=== PATIENT | male | born 1975 ===

== ENCOUNTER 2017-02-12 11:11 | Emergency (ER) | payer MEDICARE ==
[2017-02-12 11:12] VITALS: BMI 28.0
[2017-02-12 11:23] VITALS: TEMP 98.9
[2017-02-12] MEDS ORDERED: Sodium Chloride 0.9% 1,000 ML IV SCH (11:45)
--- NOTE | 2017-02-12 11:47 | ED PDOC ---
HPI: Chest Pain Time Seen by Provider: 02/12/17 11:26 Chief Complaint (Nursing): Chest Pain Chief Complaint (Provider): Chest Pain History Per: Patient History/Exam Limitations: no limitations Onset/Duration Of Symptoms: Days Current Symptoms Are (Timing): Still Present Severity: Moderate Quality: "Pain" Associated Symptoms: Dyspnea Modifying Factors: None Exacerbating Factors: None Alleviating Factors: None Additional Complaint(s): Patient is a 41 year old male with a history of lupus and fibromyalgia, presents to ED for chest pain secondary to worsening body pain for 2 days. Patient states he has been taking his prescribed Roxycet without any relief. Notes similar pain in the past, relieved with Morphine and Toradol . Patient denies nausea, vomiting or diarrhea. Patient also notes that he has decreased vision in his left eye and decreased hearing in his left ear which is normal for his " pain flare ups." Past Medical History Reviewed: Historical Data, Nursing Documentation, Vital Signs Vital Signs: Last Vital Signs Temp 98.9 F 02/12/17 11:22 Pulse 87 02/12/17 11:40 Resp 19 02/12/17 11:40 BP 142/96 H 02/12/17 11:40 Pulse Ox 97 02/12/17 11:51 - Medical History PMH: Asthma, CAD, CHF, Fibromyalgia, HTN, Kidney Stones, Chronic Kidney Disease , TIA - Surgical History Surgical History: Hernia Repair (hiatal hernia) - Family History Family History: States: CAD, Hypertension - Living Arrangements Living Arrangements: With Family - Home Medications Home Medications: Ambulatory Orders Medication Instructions Recorded Zolpidem [Ambien] 10 mg PO HS PRN 02/19/16 Allopurinol [Zyloprim] 1 tab PO DAILY 02/12/17 Dexamethasone [Decadron] 4 mg PO QOTHERDAY 02/12/17 Hydroxychloroquine Sulfate 200 mg PO BID 02/12/17 [Plaquenil] Oxycodone HCl [Roxicodone] 20 mg PO TID PRN 02/12/17 amLODIPine [Norvasc] 2 mg PO DAILY 02/12/17 - Allergies Allergies/Adverse Reactions: Allergies Allergy/AdvReac Type Severity Reaction Status Date / Time Penicillins Allergy RASH Verified 02/12/17 11:44 shellfish derived Allergy RASH Verified 02/12/17 11:44 Sulfa (Sulfonamide Allergy RASH Verified 02/12/17 11:44 Antibiotics) azithromycin [From Zithromax] AdvReac NAUSEA Verified 02/12/17 11:44 COLT Risk Score for UA/NSTEMI - COLT Risk Score Age > 64: NO 3 or more CAD Risk Factors: NO Known CAD (Stenosis greater than 50%): NO Aspirin use in past 7 days: NO Severe Angina: NO EKG ST changes greater than 0.5mm: NO Positive Cardiac Marker: NO COLT Score: 0 Risk %: 5% Review of Systems ROS Statement: Except As Marked, All Systems Reviewed And Found Negative Constitutional: Negative for: Fever, Chills Cardiovascular: Positive for: Chest Pain. Negative for: Palpitations Respiratory: Negative for: Shortness of Breath Gastrointestinal: Negative for: Nausea, Vomiting, Abdominal Pain, Diarrhea Musculoskeletal: Positive for: Other (diffuse body pain ) Neurological: Negative for: Weakness, Numbness, Headache Physical Exam - Reviewed Nursing Documentation Reviewed: Yes Vital Signs Reviewed: Yes - Physical Exam Appears: Positive for: Non-toxic, No Acute Distress Skin: Positive for: Normal Color, Warm Eye Exam: Positive for: Normal appearance, EOMI, PERRL Neck: Positive for: Normal, Painless ROM Cardiovascular/Chest: Positive for: Regular Rate, Rhythm, Chest Non Tender. Negative for: Murmur Respiratory: Positive for: Normal Breath Sounds. Negative for: Respiratory Distress Gastrointestinal/Abdominal: Positive for: Normal Exam. Negative for: Tenderness Back: Positive for: Normal Inspection Extremity: Positive for: Normal ROM. Negative for: Pedal Edema, Calf Tenderness Neurologic/Psych: Positive for: Alert, Oriented. Negative for: Motor/Sensory Deficits - Laboratory Results Result Diagrams: 02/12/17 11:40 02/12/17 11:40 - ECG O2 Sat by Pulse Oximetry: 97 (RA) Pulse Ox Interpretation: Normal - Radiology X-Ray: Viewed By [place] X-Ray Interpretation: No Acute Disease - Progress Re-evaluation Time: 14:05 Condition: Re-examined, Improved Medical Decision Making Medical Decision Making: Time: 1140 Initial impression: Exacerbation of pain Initial plan: -- EKG -- UDS -- Troponin -- CBC -- SED rate -- PT/PTT -- NSF and Toradol -- Cardiac monitoring -- U/A Scribe Attestation: Documented by Venice Boggs acting as a scribe for MD MD Constantin Khanibe Attestation: All medical record entries made by the Constantinibjoey were at my direction and personally dictated by me. I have reviewed the chart and agree that the record accurately reflects my personal performance of the history, physical exam, medical decision making, and the department course for this patient. I have also personally directed, reviewed, and agree with the discharge instructions and disposition. Disposition - Clinical Impression Clinical Impression: Chest wall pain - Patient ED Disposition Is Patient to be Admitted: No Doctor Will See Patient In The: Office Counseled Patient/Family Regarding: Diagnosis, Need For Followup - Disposition Disposition: Routine/Home Disposition Time: 14:05 Condition: IMPROVED Instructions: Noncardiac Chest Pain (ED) - POA Present On Arrival: None
[2017-02-12 11:58] LABS: BASO # 0.1 K/uL (0.0-0.2); BASO % 0.7 % (0.0-2.0); EOS # 0.1 K/uL (0.0-0.7); EOS % 1.4 % (0.0-4.0); HEMATOCRIT 44.3 % (35.0-51.0); LYMPH # 2.9 K/uL (1.0-4.3); LYMPH % 32.6 % (20.0-40.0); MEAN CELL VOLUME 84.9 fl (80.0-94.0); MEAN CORPUSCULAR HEMOGLOBIN 28.1 pg (27.0-31.0); MEAN PLATELET VOLUME 10.7 fl (7.2-11.7); MONO % 11.5 % (0.0-10.0); NEUT # 4.7 K/uL (1.8-7.0); NEUT % 53.8 % (50.0-75.0); NRBC % 0.1 % (0.0-0.0); WHITE BLOOD COUNT 8.8 K/uL (4.8-10.8)
[2017-02-12 12:08] LABS: BLOOD UREA NITROGEN 18 mg/dl (9-20); CALCIUM 9.4 mg/dL (8.4-10.2); CARBON DIOXIDE 25 mmol/L (22-30); CHLORIDE 106 mmol/L (98-107); GFR AFRICAN-AMERICAN > 60; GLUCOSE,RANDOM 83 mg/dL (75-110); POTASSIUM 3.8 MMOL/L (3.6-5.0); SODIUM 146 mmol/l (132-148)
[2017-02-12 12:24] LABS: PARTIAL THROMBOPLASTIN TIME 28.7 SECONDS (23.3-32.5)
[2017-02-12 12:49] LABS: RBC URINE 1 /hpf (0-3); URINE BILIRUBIN NEGATIVE (NEGATIVE); URINE BLOOD NEGATIVE (NEGATIVE); URINE COLOR YELLOW (YELLOW); URINE GLUCOSE (UA) NEG (Normal); URINE KETONE NEGATIVE (NEGATIVE); URINE LEUKOCYTE ESTERASE NEG Leu/uL (Negative); URINE PROTEIN NEGATIVE (NEGATIVE); URINE UROBILINOGEN 0.2-1.0 mg/dL (0.2-1.0); WBC URINE 1 /hpf (0-5)
[2017-02-12 14:21] VITALS: BP 128/58; PULSE 90; RESP 16; O2SAT 96
--- NOTE | 2017-02-13 19:00 | CARD ---
APPROVED REPORT EKG Measurement Heart [id number] <Conclusion> Normal sinus rhythm Possible Left atrial enlargement Borderline ECG
== END 2017-02-12 14:34 | disposition home or self-care (01) ==
LOC: H.ER 11:11
DX: R07.89 Other chest pain (principal); I12.9 Hypertensive chronic kidney disease with stage 1 through stage 4 chronic kidney disease, or unspecified chronic kidney disease
CPT/HCPCS: 80048; 81003; 84484; 85025; 85610; 85651; 85730; 93005; 96360; 96361; 96374; 96375; 99284; G0480; J1885; J2270; J7040

== ENCOUNTER 2017-03-22 22:14 | Emergency (ER) | payer MEDICARE ==
[2017-03-22 22:15] VITALS: BMI 28.0
[2017-03-22 22:28] VITALS: BP 170/103; PULSE 69; RESP 20; O2SAT 98
--- NOTE | 2017-03-22 23:47 | ED PDOC ---
HPI: General Adult Time Seen by Provider: 03/22/17 22:22 Chief Complaint (Nursing): Lower Extremity Problem/Injury Chief Complaint (Provider): R lower leg swelling History Per: Patient Additional Complaint(s): Pt. states yesterday he developed atraumatic swelling to the R knee. Reports he was seen by his PMD, Dr. Cano today and had the knee drained. He was told that only blood was aspirated from the knee. Swelling to the knee decreased but he did start to develop R lower leg swelling prompting ED visit and at the direction of Dr. Cano. Denies fever, SOB, chest pain, palpitations, hx of DVT/PE , recent surgery. Past Medical History Reviewed: Historical Data, Nursing Documentation, Vital Signs Vital Signs: Last Vital Signs Temp 98.1 F 03/22/17 23:49 Pulse 69 03/22/17 22:23 Resp 20 03/22/17 22:23 BP 170/103 H 03/22/17 22:23 Pulse Ox 98 03/22/17 23:53 - Medical History PMH: Asthma, CAD, CHF, Fibromyalgia, HTN, Kidney Stones, Chronic Kidney Disease , TIA Other PMH: blind in L eye - Surgical History Surgical History: Hernia Repair (hiatal hernia) - Family History Family History: States: CAD, Hypertension - Home Medications Home Medications: Ambulatory Orders Medication Instructions Recorded Zolpidem [Ambien] 10 mg PO HS PRN 02/19/16 Allopurinol [Zyloprim] 1 tab PO DAILY 02/12/17 Dexamethasone [Decadron] 4 mg PO QOTHERDAY 02/12/17 Hydroxychloroquine Sulfate 200 mg PO BID 02/12/17 [Plaquenil] Oxycodone HCl [Roxicodone] 20 mg PO TID PRN 02/12/17 amLODIPine [Norvasc] 2 mg PO DAILY 02/12/17 - Allergies Allergies/Adverse Reactions: Allergies Allergy/AdvReac Type Severity Reaction Status Date / Time Penicillins Allergy RASH Verified 02/12/17 11:44 shellfish derived Allergy RASH Verified 02/12/17 11:44 Sulfa (Sulfonamide Allergy RASH Verified 02/12/17 11:44 Antibiotics) azithromycin [From Zithromax] AdvReac NAUSEA Verified 02/12/17 11:44 Review of Systems ROS Statement: Except As Marked, All Systems Reviewed And Found Negative Physical Exam - Physical Exam Appears: Positive for: Well, Non-toxic, No Acute Distress Skin: Positive for: Normal Color, Warm. Negative for: Rash Eye Exam: Positive for: Normal appearance Cardiovascular/Chest: Positive for: Regular Rate, Rhythm Respiratory: Positive for: Normal Breath Sounds. Negative for: Crackles, Rales , Wheezing Pulses-Dorsalis Pedis (L): 2+ Pulses-Dorsalis Pedis (R): 2+ Extremity: Positive for: Normal ROM, Calf Tenderness (R calf; negative Eunice's sign), Other (R knee with old healed surgical scar and prepatellar bursa swelling without erythema, warmth, or break in skin integrity; FROM actively of R knee) - Laboratory Results Result Diagrams: 03/22/17 23:30 03/22/17 23:30 - ECG O2 Sat by Pulse Oximetry: 98 - Progress ED Course And Treament: Labs ordered. Morphine 6mg IV, zofran 4mg IV. Duplex RLE vein, knee x-ray ordered. Duplex RLE: negative. Knee x-ray: hardware in place; no fx. Pt. states his ESR was 19 on . Disposition - Clinical Impression Clinical Impression: Knee pain - Patient ED Disposition Is Patient to be Admitted: No - Disposition Disposition: Routine/Home Disposition Time: 01:53 Condition: STABLE Instructions: Knee Pain (ED)
[2017-03-22 23:48] LABS: BASO % 0.3 % (0.0-2.0); EOS % 0.2 % (0.0-4.0); HEMATOCRIT 43.8 % (35.0-51.0); LYMPH # 1.3 K/uL (1.0-4.3); LYMPH % 12.3 % (20.0-40.0); MEAN CELL VOLUME 86.1 fl (80.0-94.0); MEAN CORPUSCULAR HEMOGLOBIN 28.4 pg (27.0-31.0); MEAN PLATELET VOLUME 10.4 fl (7.2-11.7); MONO # 0.7 K/uL (0.0-0.8); MONO % 6.1 % (0.0-10.0); NEUT # 8.9 K/uL (1.8-7.0); NEUT % 81.1 % (50.0-75.0)
[2017-03-22 23:49] VITALS: TEMP 98.1
[2017-03-23 00:01] LABS: ALB/GLOB RATIO 1.2 (1.0-2.1); ALKALINE PHOSPHATASE 82 U/L (38-126); ALT/SGPT 38 U/L (21-72); AST/SGOT 21 U/L (17-59); BILIRUBIN,TOTAL 0.4 mg/dl (0.2-1.3); BLOOD UREA NITROGEN 17 mg/dl (9-20); CALCIUM 9.5 mg/dL (8.4-10.2); CARBON DIOXIDE 28 mmol/L (22-30); CHLORIDE 102 mmol/L (98-107); GFR AFRICAN-AMERICAN > 60; GLUCOSE,RANDOM 169 mg/dL (75-110); POTASSIUM 4.5 MMOL/L (3.6-5.0); SODIUM 143 mmol/l (132-148); TOTAL PROTEIN 7.4 G/DL (6.3-8.2)
--- NOTE | 2017-03-23 00:51 | US ---
EXAM: US Duplex Right Lower Extremity Veins CLINICAL HISTORY: 42 years old, male; Signs and symptoms; Edema, localized; Lower extremity, right; Patient HX: Lupus, rt knee swelling, pain TECHNIQUE: Real-time ultrasound scan of the veins of the right lower extremity with color Doppler flow, spectral waveform analysis and compression. COMPARISON: No relevant prior studies available. FINDINGS: Deep veins: Normal color and spectral Doppler flow. Normal compressibility. No deep vein thrombosis from common femoral to popliteal vein. Superficial veins: No thrombosis. Soft tissues: No popliteal cyst. IMPRESSION: 1. No evidence of DVT within RIGHT lower extremity. 2. Incidental/non-acute findings are described above.
--- NOTE | 2017-03-23 10:51 | RAD ---
PROCEDURE: Right Knee Radiographs. HISTORY: Pain COMPARISON: None. FINDINGS: BONES: There is no acute fracture or bone destruction. There are 2 screws in the proximal tibia can't a screw in the proximal tibia and medial tibial plateau. JOINTS: There is mild tricompartmental degenerative osteoarthrosis with reduced joint spaces and marginal spurring, worse in the medial compartment. JOINT EFFUSION: None. OTHER FINDINGS: None. IMPRESSION: No acute fracture or dislocation. No hardware complications.
== END 2017-03-23 02:04 | disposition home or self-care (01) ==
LOC: H.ER 22:14
DX: M25.561 Pain in right knee (principal); R60.0 Localized edema; I12.9 Hypertensive chronic kidney disease with stage 1 through stage 4 chronic kidney disease, or unspecified chronic kidney disease; I50.9 Heart failure, unspecified; J45.909 Unspecified asthma, uncomplicated; Z86.73 Personal history of transient ischemic attack (TIA), and cerebral infarction without residual deficits; Z88.0 Allergy status to penicillin; M79.7 Fibromyalgia
CPT/HCPCS: 73562; 80053; 85025; 85651; 93971; 96374; 96375; 99284; J2270; J2405

== ENCOUNTER 2017-03-28 09:35 | Emergency (ER) | payer MEDICARE ==
[2017-03-28 09:36] VITALS: BMI 28.0
[2017-03-28 10:18] VITALS: TEMP 97
[2017-03-28] MEDS ORDERED: Sodium Chloride 0.9% 1,000 ML IV STA (10:23)
[2017-03-28 10:39] LABS: RBC URINE 1 /hpf (0-3); URINE BILIRUBIN NEGATIVE (NEGATIVE); URINE BLOOD NEGATIVE (NEGATIVE); URINE COLOR YELLOW (YELLOW); URINE GLUCOSE (UA) NEG (Normal); URINE KETONE NEGATIVE (NEGATIVE); URINE LEUKOCYTE ESTERASE NEG Leu/uL (Negative); URINE PROTEIN NEGATIVE (NEGATIVE); URINE UROBILINOGEN 0.2-1.0 mg/dL (0.2-1.0); WBC URINE < 1 /hpf (0-5)
--- NOTE | 2017-03-28 10:40 | ED PDOC ---
HPI: Abdomen Time Seen by Provider: 03/28/17 09:57 Chief Complaint (Nursing): Abdominal Pain Chief Complaint (Provider): Abdominal Pain History Per: Patient History/Exam Limitations: no limitations Onset/Duration Of Symptoms: Hrs (began last night), Worse Since (this morning) Outside of [place] travel?: No Current Symptoms Are (Timing): Still Present Severity: Moderate Location Of Pain/Discomfort: LLQ (radiates to), Other (left-sided flank pain) Associated Symptoms: Nausea, Urinary Symptoms (dysuria). denies: Fever, Chills , Vomiting Exacerbating Factors: None Alleviating Factors: None Last Bowel Movement: Today (patient believes that he may have dispelled a kidney stone) Additional Complaint(s): Carl Haynes is a 42 year old male, with a past medical history of kidney stones and chronic back pain, who presents to the emergency department for the evaluation of left-sided flank pain that radiates to his left lower quadrant, that the patient has been experiencing since last night. The pain worsened this morning, prompting his visit to the emergency department. Patient believes that he may have dispelled a kidney stone after an episode of painful urination and states that his home dosage of Oxycodone provided no relief for his pain. Associated nausea is currently present. Denies vomiting, fever, or chills. PMD: Arley Cano Past Medical History Reviewed: Historical Data, Nursing Documentation, Vital Signs Vital Signs: Last Vital Signs Temp 97.0 F L 03/28/17 10:16 Pulse 68 03/28/17 12:49 Resp 18 03/28/17 12:49 BP 124/54 L 03/28/17 12:49 Pulse Ox 97 03/28/17 13:16 - Medical History PMH: Asthma, CAD, CHF, Fibromyalgia, HTN, Kidney Stones, Chronic Kidney Disease , TIA - Surgical History Surgical History: Hernia Repair (hiatal hernia) Other surgeries: Right Knee Surgery (x8) - Family History Family History: States: CAD, Hypertension - Home Medications Home Medications: Ambulatory Orders Medication Instructions Recorded Zolpidem [Ambien] 10 mg PO HS PRN 02/19/16 Allopurinol [Zyloprim] 1 tab PO DAILY 02/12/17 Dexamethasone [Decadron] 4 mg PO QOTHERDAY 02/12/17 Hydroxychloroquine Sulfate 200 mg PO BID 02/12/17 [Plaquenil] Oxycodone HCl [Roxicodone] 20 mg PO TID PRN 02/12/17 amLODIPine [Norvasc] 2 mg PO DAILY 02/12/17 Tamsulosin [Flomax] 0.4 mg PO DAILY #14 cap 03/28/17 - Allergies Allergies/Adverse Reactions: Allergies Allergy/AdvReac Type Severity Reaction Status Date / Time Penicillins Allergy RASH Verified 02/12/17 11:44 shellfish derived Allergy RASH Verified 02/12/17 11:44 Sulfa (Sulfonamide Allergy RASH Verified 02/12/17 11:44 Antibiotics) azithromycin [From Zithromax] AdvReac NAUSEA Verified 02/12/17 11:44 Review of Systems ROS Statement: Except As Marked, All Systems Reviewed And Found Negative Constitutional: Negative for: Fever, Chills Gastrointestinal: Positive for: Nausea, Abdominal Pain (left-sided flank pain radiating to left lower quadrant). Negative for: Vomiting Genitourinary Male: Positive for: Dysuria (x1 episode) Physical Exam - Reviewed Nursing Documentation Reviewed: Yes Vital Signs Reviewed: Yes - Physical Exam Appears: Positive for: Non-toxic, No Acute Distress Head Exam: Positive for: ATRAUMATIC, NORMOCEPHALIC Skin: Positive for: Normal Color, Warm, Dry Neck: Positive for: Normal, Painless ROM Cardiovascular/Chest: Positive for: Regular Rate, Rhythm. Negative for: Murmur Respiratory: Positive for: Normal Breath Sounds. Negative for: Respiratory Distress Gastrointestinal/Abdominal: Positive for: Normal Exam, Soft, Tenderness (mild left flank tenderness) Back: Positive for: Normal Inspection, L CVA Tenderness. Negative for: R CVA Tenderness Extremity: Positive for: Normal ROM. Negative for: Tenderness Neurologic/Psych: Positive for: Alert, Oriented - Laboratory Results Result Diagrams: 03/28/17 10:30 03/28/17 10:30 - ECG O2 Sat by Pulse Oximetry: 97 (RA) Pulse Ox Interpretation: Normal Medical Decision Making Medical Decision Makin:57 Initial Impression: kidney stones versus muscle spasms Initial Plan: * Renal Ultrasound * CBC * BMP * Urinalysis * Urine Culture * Morphine 4 mg IVP * Sodium Chloride 0.9% 1,000 ml IV at 500 mls/hr * Toradol 30 mg IVP * Reevaluation 1200: <1cm nonobstructing stone seen, pt. feeling better, eating full meal in room. pt. has narcotics at home, will prescribe tamsulosin, encouraged f/u w/ urologist. Scribe Attestation: Documented by Greg Benz, acting as a scribe for Mynor Le MD. Provider Scribe Attestation: All medical record entries made by the Scribe were at my direction and personally dictated by me. I have reviewed the chart and agree that the record accurately reflects my personal performance of the history, physical exam, medical decision making, and the department course for this patient. I have also personally directed, reviewed, and agree with the discharge instructions and disposition. Disposition - Clinical Impression Clinical Impression: Renal stone - Disposition Referrals: Nba Rivas MD [Staff Provider] - Disposition: Routine/Home Disposition Time: 12:30 Condition: STABLE Prescriptions: Tamsulosin [Flomax] 0.4 mg PO DAILY #14 cap Instructions: Kidney Stones (DC)
[2017-03-28 11:06] LABS: BASO % 0.3 % (0.0-2.0); EOS # 0.1 K/uL (0.0-0.7); EOS % 0.9 % (0.0-4.0); HEMATOCRIT 43.7 % (35.0-51.0); LYMPH # 2.3 K/uL (1.0-4.3); LYMPH % 17.6 % (20.0-40.0); MEAN CELL VOLUME 85.4 fl (80.0-94.0); MEAN CORPUSCULAR HEMOGLOBIN 28.8 pg (27.0-31.0); MEAN CORPUSCULAR HGB CONC 33.7 g/dL (33.0-37.0); MEAN PLATELET VOLUME 10.1 fl (7.2-11.7); MONO % 7.6 % (0.0-10.0); NEUT # 9.8 K/uL (1.8-7.0); NEUT % 73.6 % (50.0-75.0); NRBC % 0.1 % (0.0-0.0); PLATELET COUNT 159 K/uL (130-400); RED CELL DISTRIBUTION WIDTH 13.8 % (11.5-14.5); WHITE BLOOD COUNT 13.3 K/uL (4.8-10.8)
[2017-03-28 11:27] LABS: BLOOD UREA NITROGEN 23 mg/dl (9-20); CALCIUM 9.3 mg/dL (8.4-10.2); CARBON DIOXIDE 23 mmol/L (22-30); CHLORIDE 104 mmol/L (98-107); GFR AFRICAN-AMERICAN > 60; GLUCOSE,RANDOM 124 mg/dL (75-110); POTASSIUM 3.5 MMOL/L (3.6-5.0); SODIUM 140 mmol/l (132-148)
--- NOTE | 2017-03-28 11:44 | US ---
PROCEDURE: Ultrasound of the Kidneys HISTORY: L sided flank pain, hx of kidney stones COMPARISON: 08/15/2015 abdominal ultrasound. 11/11/2016 CT abdomen and pelvis.. TECHNIQUE: Sonogram of the kidneys. FINDINGS: RIGHT KIDNEY: Measures: 8.1 x 12.3 cm. Normal in size, contour and echogenicity. No stone, solid mass lesion or hydronephrosis visualized. Stable cyst 5.3 cm. LEFT KIDNEY: Measures: 6 x 11.8 cm. Normal in size, contour and echogenicity. Echogenic focus lower pole 4 x 6 mm consistent with nonobstructing calculi. Incidental finding(s): Simple cyst 10 mm. OTHER FINDINGS: None. IMPRESSION: Solitary nonobstructing subcentimeter calculus lower pole left kidney.
[2017-03-28 12:23] LABS: EOSINOPHIL 1 % (0-7); NEUTROPHIL 74 % (42-75); TOTAL CELLS COUNTED 100
[2017-03-28 12:24] LABS: LARGE PLATELETS PRESENT
[2017-03-28 12:50] VITALS: BP 124/54; PULSE 68; RESP 18
[2017-03-28 13:16] VITALS: O2SAT 97
== END 2017-03-28 12:50 | disposition home or self-care (01) ==
LOC: H.ER 09:35
DX: N20.0 Calculus of kidney (principal); R11.0 Nausea; R30.0 Dysuria; J45.909 Unspecified asthma, uncomplicated; M79.7 Fibromyalgia; K44.9 Diaphragmatic hernia without obstruction or gangrene; I12.9 Hypertensive chronic kidney disease with stage 1 through stage 4 chronic kidney disease, or unspecified chronic kidney disease; I25.10 Atherosclerotic heart disease of native coronary artery without angina pectoris; Z86.73 Personal history of transient ischemic attack (TIA), and cerebral infarction without residual deficits; Z88.0 Allergy status to penicillin
CPT/HCPCS: 76770; 80048; 81003; 85025; 87086; 96361; 96374; 96375; 99284; J1885; J2270; J7040

== ENCOUNTER 2017-04-19 06:40 | Emergency (ER) | payer MEDICARE ==
[2017-04-19 06:40] VITALS: BMI 28.0
[2017-04-19] MEDS ORDERED: Sodium Chloride 0.9% 1,000 ML IV STA (07:04)
--- NOTE | 2017-04-19 07:07 | ED PDOC ---
HPI: Back Time Seen by Provider: 04/19/17 06:59 Chief Complaint (Nursing): Back Pain History Per: Patient (Right flank pain radiating to front x 2 days. No NVD. No dysuria or fever. Pain is assoc with dizziness, lightheadedness. No focal weakness) Onset/Duration Of Symptoms: Days (2) Quality Of Discomfort: Aching Severity: Moderate Pain Scale Rating Of: 4 Previous Symptoms: Back Pain Associated Symptoms: None Exacerbating Factor(s): Nothing Past Medical History Vital Signs: Last Vital Signs Temp 98.1 F 04/19/17 06:52 Pulse 83 04/19/17 06:52 Resp 16 04/19/17 06:52 BP 161/107 H 04/19/17 06:52 Pulse Ox 18 L 04/19/17 06:52 - Medical History PMH: Asthma, CAD, CHF, Fibromyalgia, HTN, Kidney Stones, Chronic Kidney Disease , TIA Other PMH: Lupus - Surgical History Surgical History: Hernia Repair (hiatal hernia) - Family History Family History: States: CAD, Hypertension - Home Medications Home Medications: Ambulatory Orders Medication Instructions Recorded Zolpidem [Ambien] 10 mg PO HS PRN 02/19/16 Allopurinol [Zyloprim] 1 tab PO DAILY 02/12/17 Dexamethasone [Decadron] 4 mg PO QOTHERDAY 02/12/17 Hydroxychloroquine Sulfate 200 mg PO BID 02/12/17 [Plaquenil] Oxycodone HCl [Roxicodone] 20 mg PO TID PRN 02/12/17 amLODIPine [Norvasc] 2 mg PO DAILY 02/12/17 Tamsulosin [Flomax] 0.4 mg PO DAILY #14 cap 03/28/17 Ciprofloxacin HCl [Cipro] 500 mg PO BID #20 tab 04/19/17 Tamsulosin [Flomax] 0.4 mg PO DAILY #6 cap 04/19/17 traMADol [Ultram] 50 mg PO Q8 #10 tab 04/19/17 - Allergies Allergies/Adverse Reactions: Allergies Allergy/AdvReac Type Severity Reaction Status Date / Time Penicillins Allergy RASH Verified 04/19/17 06:52 shellfish derived Allergy RASH Verified 04/19/17 06:52 Sulfa (Sulfonamide Allergy RASH Verified 04/19/17 06:52 Antibiotics) azithromycin [From Zithromax] AdvReac NAUSEA Verified 04/19/17 06:52 Review of Systems ROS Statement: Except As Marked, All Systems Reviewed And Found Negative Constitutional: Negative for: Fever Gastrointestinal: Negative for: Abdominal Pain Genitourinary Male: Negative for: Dysuria, Frequency Musculoskeletal: Negative for: Back Pain Neurological: Positive for: Dizziness. Negative for: Weakness, Numbness Physical Exam - Reviewed Nursing Documentation Reviewed: Yes Vital Signs Reviewed: Yes - Physical Exam Appears: Positive for: Non-toxic, No Acute Distress Head Exam: Positive for: ATRAUMATIC, NORMAL INSPECTION, NORMOCEPHALIC Skin: Positive for: Normal Color, Warm, DRY Eye Exam: Positive for: EOMI, Normal appearance, PERRL ENT: Positive for: Normal ENT Inspection Neck: Positive for: Normal, Painless ROM Cardiovascular/Chest: Positive for: Regular Rate, Rhythm Respiratory: Positive for: CNT, Normal Breath Sounds Gastrointestinal/Abdominal: Positive for: Normal Exam, Bowel Sounds, Soft Back: Positive for: Normal Inspection Extremity: Positive for: Normal ROM Neurologic/Psych: Positive for: Alert, Oriented. Negative for: Motor/Sensory Deficits - ECG O2 Sat by Pulse Oximetry: 18 Disposition - Clinical Impression Clinical Impression: Kidney stone - Patient ED Disposition Is Patient to be Admitted: No Counseled Patient/Family Regarding: Studies Performed, Diagnosis, Need For Followup, Rx Given - Disposition Referrals: Gabriel Bello Jr., MD [Staff Provider] - Disposition: Routine/Home Disposition Time: 09:15 Condition: FAIR Prescriptions: Ciprofloxacin HCl [Cipro] 500 mg PO BID #20 tab Tamsulosin [Flomax] 0.4 mg PO DAILY #6 cap traMADol [Ultram] 50 mg PO Q8 #10 tab Instructions: Kidney Stones (ED)
[2017-04-19 07:11] VITALS: TEMP 98.1
--- NOTE | 2017-04-19 08:34 | CT ---
PROCEDURE: CT Abdomen and Pelvis without Oral or IV contrast. HISTORY: r/o kidney stone COMPARISON: CT abdomen and pelvis without oral or IV contrast performed 11/11/16 TECHNIQUE: Contiguous axial images of the abdomen and pelvis. No oral or IV contrast administered. Coronal and Sagittal reformats generated and reviewed. Radiation dose: Total exam DLP = 1120.75 mGy-cm. This CT exam was performed using one or more of the following dose reduction techniques: Automated exposure control, adjustment of the mA and/or kV according to patient size, and/or use of iterative reconstruction technique. FINDINGS: There is limited evaluation of the solid organs without the administration of IV contrast. LOWER THORAX: No visible consolidation, pleural effusion, or pneumothorax. LIVER: Unremarkable unenhanced appearance. GALLBLADDER AND BILE DUCTS: Unremarkable unenhanced appearance. PANCREAS: Unremarkable unenhanced appearance. SPLEEN: Unremarkable unenhanced appearance. ADRENALS: Unremarkable unenhanced appearance. KIDNEYS AND URETERS: No hydronephrosis or obstructing renal calculus. Nonobstructing 2 mm right upper pole renal calculus. 5 cm lower upper pole renal hypodense lesion measuring approximately 5 HU, likely cyst. BLADDER: Mildly thick-walled urinary bladder likely exaggerated by under distension. REPRODUCTIVE: Unremarkable. APPENDIX: The appendix appears within normal limits of caliber. No secondary signs of acute appendicitis. BOWEL: The stomach is nondistended. Lack of oral contrast limits evaluation for bowel pathology. The bowel loops appear within normal limits of caliber without evidence of intestinal obstruction. PERITONEUM: No significant free fluid. No definite free air. LYMPH NODES: No bulky lymphadenopathy identified. VASCULATURE: No aortic aneurysm. BONES: No acute osseous abnormality is detected. OTHER FINDINGS: Bilateral fat containing inguinal hernias. Tiny fat containing umbilical hernia. IMPRESSION: No acute pathology identified. Incidental findings as above.
[2017-04-19 09:31] VITALS: BP 142/78; PULSE 75; RESP 18; O2SAT 99
== END 2017-04-19 09:32 | disposition home or self-care (01) ==
LOC: H.ER 06:40
DX: N20.0 Calculus of kidney (principal); M54.9 Dorsalgia, unspecified; I12.9 Hypertensive chronic kidney disease with stage 1 through stage 4 chronic kidney disease, or unspecified chronic kidney disease; I25.10 Atherosclerotic heart disease of native coronary artery without angina pectoris; J45.909 Unspecified asthma, uncomplicated; M32.9 Systemic lupus erythematosus, unspecified; M79.7 Fibromyalgia; Z86.73 Personal history of transient ischemic attack (TIA), and cerebral infarction without residual deficits; Z88.0 Allergy status to penicillin
CPT/HCPCS: 74176; 96361; 96374; 96375; 99283; J1885; J2270; J7040

== ENCOUNTER 2017-05-07 10:27 | Observation (INO) | payer SELFPAY ==
[2017-05-07 10:28] VITALS: BMI 28.0
[2017-05-07 10:38] VITALS: TEMP 98.1
[2017-05-07] MEDS ORDERED: Sodium Chloride 0.9% 1,000 ML IV STA (10:57)
--- NOTE | 2017-05-07 11:12 | ED PDOC ---
HPI: General Adult Time Seen by Provider: 05/07/17 10:41 Chief Complaint (Nursing): Chest Pain Chief Complaint (Provider): Generalized body pain History Per: Patient History/Exam Limitations: no limitations Onset/Duration Of Symptoms: Days (3) Have you had recent travel within the past 21 days to any of the following countries: [place], [place], [place] or [place]?: No Current Symptoms Are (Timing): Still Present Severity: Moderate Additional History Per: Patient Additional Complaint(s): The pt is a 42yo male, PMHx of lupus, gout, fibromyalgia, HTN, TIA x2, kidney stones, presents to the ED for evaluation of pain all over his body for the past three days. Pt reports the pain is now associated with blurry vision in his left eye. Pt reports he visited his electronics mechanic apprentice at [facility] who put him on a steroid regimen for the past three days with no relief. Pt also reports taking 15mg morphine this morning with no relief. Pt reports he has visited this facility in the past for similar symptoms and states Morphine and Toradol when given together provides him with relief. Pt currently denies any other medical complaints. PCP: Dr. Arley Cano Past Medical History Reviewed: Historical Data, Nursing Documentation, Vital Signs Vital Signs: Last Vital Signs Temp 98.1 F 05/07/17 10:46 Pulse 76 05/07/17 13:16 Resp 19 05/07/17 13:16 BP 157/77 H 05/07/17 13:16 Pulse Ox 99 05/07/17 13:16 - Medical History PMH: Asthma, CAD, CHF, Fibromyalgia, HTN, Kidney Stones, Chronic Kidney Disease , TIA - Surgical History Surgical History: Hernia Repair (hiatal hernia) - Family History Family History: States: CAD, Hypertension - Home Medications Home Medications: Ambulatory Orders Medication Instructions Recorded Zolpidem [Ambien] 10 mg PO HS PRN 02/19/16 Allopurinol [Zyloprim] 1 tab PO DAILY 02/12/17 Dexamethasone [Decadron] 4 mg PO QOTHERDAY 02/12/17 Hydroxychloroquine Sulfate 200 mg PO BID 02/12/17 [Plaquenil] Oxycodone HCl [Roxicodone] 20 mg PO TID PRN 02/12/17 amLODIPine [Norvasc] 2 mg PO DAILY 03/15/17 Morphine [Morphine Immediate 1 tab PO PRN PRN 05/07/17 Release Tab] - Allergies Allergies/Adverse Reactions: Allergies Allergy/AdvReac Type Severity Reaction Status Date / Time Penicillins Allergy RASH Verified 05/07/17 11:26 shellfish derived Allergy RASH Verified 05/07/17 11:26 Sulfa (Sulfonamide Allergy RASH Verified 05/07/17 11:26 Antibiotics) azithromycin [From Zithromax] AdvReac NAUSEA Verified 05/07/17 11:26 Review of Systems ROS Statement: Except As Marked, All Systems Reviewed And Found Negative Constitutional: Positive for: Other (Generalized bodyaches) Eyes: Positive for: Vision Change (blurry vision left eye) Physical Exam - Reviewed Nursing Documentation Reviewed: Yes Vital Signs Reviewed: Yes - Physical Exam Appears: Positive for: Well, Non-toxic, No Acute Distress Head Exam: Positive for: ATRAUMATIC, NORMAL INSPECTION, NORMOCEPHALIC Skin: Positive for: Normal Color, Warm, DRY Eye Exam: Positive for: Normal appearance Neck: Positive for: Normal, Supple Respiratory: Negative for: Respiratory Distress Neurologic/Psych: Positive for: Alert, Oriented - Laboratory Results Result Diagrams: 05/07/17 11:00 05/07/17 11:00 - ECG O2 Sat by Pulse Oximetry: 96 (RA) Pulse Ox Interpretation: Normal Medical Decision Making Medical Decision Making: Time: 1053 Impression: Pain all over body Plan: * CMP * CBC * IV Fluids * Morphine 4 mg IV * Toradol 30 mg IM * Reassess Scribe Attestation: Documented by Marcie Martínez acting as a scribe for Cora Guidry MD. Provider Attestation: All medical record entries made by the Scribe were at my direction and personally dictated by me. I have reviewed the chart and agree that the record accurately reflects my personal performance of the history, physical exam, medical decision making, and the department course for this patient. I have also personally directed, reviewed, and agree with the discharge instructions and disposition. 1.00p case dw Dr. szymanski , his rheumatolgist in [facility]. He did not have additional insight as he has only seen this patient twice. 3.00p patient feels completely better. No longer in pain. Will d/c home. ED OBSERVATION Discharge: Yes Date of observation admission: 05/07/17 Time of observation admission: 13:00 - Observation admission statement Patient is being placed in observation because:: severe pain despite IV toradol and morphine. - Progress Note Progress Note: 05/07/17 15:02 see MDM Disposition - Clinical Impression Clinical Impression: Diffuse pain - Patient ED Disposition Is Patient to be Admitted: No Doctor Will See Patient In The: Office Counseled Patient/Family Regarding: Diagnosis, Need For Followup - Disposition Disposition: Routine/Home Disposition Time: 15:03 Condition: IMPROVED - POA Present On Arrival: None
[2017-05-07 11:19] LABS: BASO # 0.1 K/uL (0.0-0.2); BASO % 0.6 % (0.0-2.0); EOS # 0.2 K/uL (0.0-0.7); HEMATOCRIT 46.5 % (35.0-51.0); LYMPH # 2.4 K/uL (1.0-4.3); LYMPH % 23.2 % (20.0-40.0); MEAN CELL VOLUME 86.1 fl (80.0-94.0); MEAN CORPUSCULAR HEMOGLOBIN 28.4 pg (27.0-31.0); MONO # 0.8 K/uL (0.0-0.8); MONO % 8.2 % (0.0-10.0); NEUT # 6.7 K/uL (1.8-7.0); NRBC % 0.1 % (0.0-0.0); RED CELL DISTRIBUTION WIDTH 13.4 % (11.5-14.5); WHITE BLOOD COUNT 10.1 K/uL (4.8-10.8)
[2017-05-07 11:37] LABS: ALB/GLOB RATIO 1.5 (1.0-2.1); ALKALINE PHOSPHATASE 67 U/L (38-126); ALT/SGPT 41 U/L (21-72); AST/SGOT 22 U/L (17-59); BILIRUBIN,TOTAL 0.5 mg/dl (0.2-1.3); BLOOD UREA NITROGEN 19 mg/dl (9-20); CALCIUM 9.7 mg/dL (8.4-10.2); CARBON DIOXIDE 25 mmol/L (22-30); CHLORIDE 103 mmol/L (98-107); GFR AFRICAN-AMERICAN > 60; GLUCOSE,RANDOM 134 mg/dL (75-110); POTASSIUM 4.3 MMOL/L (3.6-5.0); SODIUM 141 mmol/l (132-148); TOTAL PROTEIN 7.7 G/DL (6.3-8.2)
[2017-05-07 15:16] VITALS: BP 144/75; PULSE 67; RESP 18; O2SAT 98
--- NOTE | 2017-05-09 09:43 | CARD ---
APPROVED REPORT EKG Measurement Heart [id number] <Conclusion> Sinus tachycardia Possible Left atrial enlargement Borderline ECG
== END 2017-05-07 15:07 | disposition home or self-care (01) ==
LOC: H.ER 10:27 → H.EROBSV 13:10
PROVIDERS: ADMIT Emergency Medicine; ATTEND Emergency Medicine
DX: R52 Pain, unspecified (principal); M79.7 Fibromyalgia; M10.9 Gout, unspecified; M32.9 Systemic lupus erythematosus, unspecified; I25.10 Atherosclerotic heart disease of native coronary artery without angina pectoris; J45.909 Unspecified asthma, uncomplicated; I10 Essential (primary) hypertension; Z86.73 Personal history of transient ischemic attack (TIA), and cerebral infarction without residual deficits; Z87.442 Personal history of urinary calculi; Z88.2 Allergy status to sulfonamides; Z88.3 Allergy status to other anti-infective agents; Z88.0 Allergy status to penicillin; Z91.013 Allergy to seafood
CPT/HCPCS: 80053; 85025; 93005; 96361; 96374; 96375; 99284; G0378; J1170; J1885; J2270; J7040

== ENCOUNTER 2017-09-28 02:39 | Emergency (ER) | payer MEDICARE ==
[2017-09-28 02:39] VITALS: BMI 28.0
[2017-09-28 02:56] VITALS: RESP 30; TEMP 98
[2017-09-28 03:25] LABS: BASO # 0.1 K/uL (0.0-0.2); BASO % 0.5 % (0.0-2.0); EOS # 0.2 K/uL (0.0-0.7); EOS % 1.8 % (0.0-4.0); LYMPH # 2.2 K/uL (1.0-4.3); LYMPH % 23.1 % (20.0-40.0); MEAN CELL VOLUME 83.8 fl (80.0-94.0); MEAN CORPUSCULAR HEMOGLOBIN 28.1 pg (27.0-31.0); MEAN CORPUSCULAR HGB CONC 33.6 g/dL (33.0-37.0); MEAN PLATELET VOLUME 10.4 fl (7.2-11.7); MONO # 0.7 K/uL (0.0-0.8); MONO % 7.9 % (0.0-10.0); NEUT # 6.3 K/uL (1.8-7.0); NEUT % 66.7 % (50.0-75.0); NRBC % 0.1 % (0.0-0.0); RED CELL DISTRIBUTION WIDTH 13.2 % (11.5-14.5); WHITE BLOOD COUNT 9.4 K/uL (4.8-10.8)
--- NOTE | 2017-09-28 03:31 | ED PDOC ---
HPI: Chest Pain Time Seen by Provider: 09/28/17 02:46 Chief Complaint (Nursing): Chest Pain Chief Complaint (Provider): Chest Pain History Per: Patient History/Exam Limitations: no limitations Onset/Duration Of Symptoms: Hrs (x1) Current Symptoms Are (Timing): Still Present Additional Complaint(s): Carl Haynes is a 42 year old male with previous medical history of lupus and fibromyalgia, who presents to the emergency department with a complaint of chest pain associated with mild shortness of breath ongoing for 1 hour. Denied nausea, vomiting or sweats. Patient stated he had similar symptoms in the past and usually takes Dilaudid for pain management, however, it provided little relief today for symptoms. PMD: none provided Past Medical History Reviewed: Historical Data, Nursing Documentation, Vital Signs Vital Signs: Last Vital Signs Temp 98 F 09/28/17 02:49 Pulse 90 09/28/17 05:56 Resp 30 H 09/28/17 02:49 BP 133/69 09/28/17 05:56 Pulse Ox 94 L 09/28/17 06:03 - Medical History PMH: Asthma, CAD, CHF, Fibromyalgia, HTN, Kidney Stones, Chronic Kidney Disease , TIA Other PMH: lupus - Surgical History Surgical History: Hernia Repair (hiatal hernia) - Family History Family History: States: CAD, Hypertension - Social History Current smoker - smoking cessation education provided: No Alcohol: None Drugs: Denies - Home Medications Home Medications: Ambulatory Orders Medication Instructions Recorded Zolpidem [Ambien] 10 mg PO HS PRN 02/19/16 Allopurinol [Zyloprim] 1 tab PO DAILY 02/12/17 Dexamethasone [Decadron] 4 mg PO QOTHERDAY 02/12/17 Hydroxychloroquine Sulfate 200 mg PO BID 02/12/17 [Plaquenil] Oxycodone HCl [Roxicodone] 20 mg PO TID PRN 02/12/17 amLODIPine [Norvasc] 2 mg PO DAILY 02/12/17 Morphine [Morphine Immediate 1 tab PO PRN PRN 05/07/17 Release Tab] - Allergies Allergies/Adverse Reactions: Allergies Allergy/AdvReac Type Severity Reaction Status Date / Time Penicillins Allergy RASH Verified 05/07/17 11:26 shellfish derived Allergy RASH Verified 05/07/17 11:26 Sulfa (Sulfonamide Allergy RASH Verified 05/07/17 11:26 Antibiotics) azithromycin [From Zithromax] AdvReac NAUSEA Verified 05/07/17 11:26 Review of Systems ROS Statement: Except As Marked, All Systems Reviewed And Found Negative Constitutional: Negative for: Sweats Cardiovascular: Positive for: Chest Pain Respiratory: Positive for: Shortness of Breath (mild) Gastrointestinal: Negative for: Nausea, Vomiting Physical Exam - Reviewed Nursing Documentation Reviewed: Yes Vital Signs Reviewed: Yes - Physical Exam Appears: Positive for: Well, Non-toxic, No Acute Distress Head Exam: Positive for: ATRAUMATIC, NORMAL INSPECTION, NORMOCEPHALIC Skin: Positive for: Normal Color Eye Exam: Positive for: Normal appearance, EOMI, PERRL. Negative for: Nystagmus ENT: Positive for: Normal ENT Inspection Neck: Positive for: Normal, Painless ROM, Supple. Negative for: Decreased ROM Cardiovascular/Chest: Positive for: Regular Rate, Rhythm, Chest Non Tender. Negative for: Murmur Respiratory: Positive for: Normal Breath Sounds, Accessory Muscle Use. Negative for: Decreased Breath Sounds, Crackles, Rales, Rhonchi, Wheezing, Respiratory Distress Gastrointestinal/Abdominal: Positive for: Normal Exam, Bowel Sounds, Soft. Negative for: Tenderness Back: Positive for: Normal Inspection. Negative for: L CVA Tenderness, R CVA Tenderness Neurologic/Psych: Positive for: Alert, Oriented - Laboratory Results Result Diagrams: 09/28/17 03:19 09/28/17 03:19 - ECG O2 Sat by Pulse Oximetry: 94 (RA) Pulse Ox Interpretation: Normal Medical Decision Making Medical Decision Making: Initial Impression: Chest pain onset chronic pain, lupus and fibromyalgia Initial Plan: * EKG * Alcohol serum * CMP * Drug screen, urine * Troponin I * CBC * PTT * PT * CXR * Dilaudid 0.5mg IVP * Morphine 4mg IVP * Toradol 15mg IV Time: 033 --CXR: Myocardial megaly. Time: 529 --Upon provider reevaluation, patient is feeling remarkable improvement, medically stable and requires no further treatment in the ED at this time. Patient will be discharged home. Counseling was provided and all questions were answered regarding diagnosis and need for follow up with PCP. There is agreement to discharge plan. Return if symptoms persist or worsen. Clinical Impression: Atypical chest pain Scribe Attestation: Documented by Francisca Mejias, acting as a scribe for Mateusz Ravi MD. Provider Scribe Attestation: All medical record entries made by the Scribe were at my direction and personally dictated by me. I have reviewed the chart and agree that the record accurately reflects my personal performance of the history, physical exam, medical decision making, and the department course for this patient. I have also personally directed, reviewed, and agree with the discharge instructions and disposition. Disposition - Clinical Impression Clinical Impression: Atypical chest pain - Patient ED Disposition Is Patient to be Admitted: No - Disposition Disposition: Routine/Home Disposition Time: 23:32 Condition: IMPROVED Instructions: Noncardiac Chest Pain (ED) Forms: [employer] (Turkmen)
[2017-09-28 03:32] LABS: ALB/GLOB RATIO 1.4 (1.0-2.1); ALCOHOL SERUM < 10 mg/dl (0-10); ALKALINE PHOSPHATASE 76 U/L (38-126); ALT/SGPT 38 U/L (21-72); AST/SGOT 23 U/L (17-59); BILIRUBIN,TOTAL 0.3 mg/dl (0.2-1.3); BLOOD UREA NITROGEN 18 mg/dl (9-20); CALCIUM 9.5 mg/dL (8.4-10.2); CARBON DIOXIDE 23 mmol/L (22-30); CHLORIDE 103 mmol/L (98-107); GFR AFRICAN-AMERICAN > 60; GLUCOSE,RANDOM 139 mg/dL (75-110); SODIUM 144 mmol/l (132-148); TOTAL PROTEIN 8.1 G/DL (6.3-8.2)
[2017-09-28] MEDS ORDERED: HYDROmorphone 0.5 mg/0.5 ml ISec ONE (03:33)
[2017-09-28 03:45] LABS: PARTIAL THROMBOPLASTIN TIME 33.8 Seconds (25.6-37.1)
[2017-09-28 05:57] VITALS: BP 133/69; PULSE 90; O2SAT 94
--- NOTE | 2017-09-28 10:29 | RAD ---
HISTORY: chest pain COMPARISON: 11/18/2016. FINDINGS: LUNGS: The lungs are well inflated and clear. PLEURA: No significant pleural effusion identified, no pneumothorax apparent. CARDIOVASCULAR: Normal. OSSEOUS STRUCTURES: No significant abnormalities. VISUALIZED UPPER ABDOMEN: Normal. OTHER FINDINGS: None. IMPRESSION: No active pulmonary disease.
--- NOTE | 2017-09-28 16:36 | CARD ---
APPROVED REPORT EKG Measurement Heart [id number] <Conclusion> Sinus tachycardia Possible Left atrial enlargement Borderline ECG
== END 2017-09-28 05:56 | disposition home or self-care (01) ==
LOC: H.ER 02:39
DX: R07.89 Other chest pain (principal); I25.10 Atherosclerotic heart disease of native coronary artery without angina pectoris; G89.29 Other chronic pain; J45.909 Unspecified asthma, uncomplicated; K44.9 Diaphragmatic hernia without obstruction or gangrene; M32.9 Systemic lupus erythematosus, unspecified; M79.7 Fibromyalgia; Z86.73 Personal history of transient ischemic attack (TIA), and cerebral infarction without residual deficits; Z87.442 Personal history of urinary calculi; Z88.0 Allergy status to penicillin
CPT/HCPCS: 71010; 80053; 84484; 85025; 85610; 85730; 93005; 96374; 99284; G0480; J1170; J1885

== ENCOUNTER 2018-01-28 09:34 | Emergency (ER) | payer MEDICARE ==
[2018-01-28 09:34] VITALS: BMI 40.6
[2018-01-28 10:52] LABS: BASO # 0.1 K/uL (0.0-0.2); BASO % 0.9 % (0.0-2.0); EOS # 0.3 K/uL (0.0-0.7); HEMOGLOBIN 15.7 g/dL (12.0-18.0); LYMPH # 1.9 K/uL (1.0-4.3); LYMPH % 20.2 % (20.0-40.0); MEAN CELL VOLUME 84.1 fl (80.0-94.0); MEAN CORPUSCULAR HEMOGLOBIN 28.7 pg (27.0-31.0); MEAN CORPUSCULAR HGB CONC 34.1 g/dL (33.0-37.0); MEAN PLATELET VOLUME 10.5 fl (7.2-11.7); MONO # 0.9 K/uL (0.0-0.8); MONO % 9.4 % (0.0-10.0); NEUT # 6.1 K/uL (1.8-7.0); NEUT % 66.5 % (50.0-75.0); NRBC % 0.1 % (0.0-0.0); RBC 5.47 Mil/uL (4.40-5.90); RED CELL DISTRIBUTION WIDTH 13.3 % (11.5-14.5); WHITE BLOOD COUNT 9.2 K/uL (4.8-10.8)
--- NOTE | 2018-01-28 10:55 | ED PDOC ---
HPI: General Adult Time Seen by Provider: 01/28/18 09:57 Chief Complaint (Nursing): Chest Pain Chief Complaint (Provider): Chest Pain/Flank Pain/Body Aches/Anxiety History Per: Patient History/Exam Limitations: no limitations Onset/Duration Of Symptoms: Hrs Additional Complaint(s): Carl Haynes is a 42 year old male with a history of lupus, fibromyalgia, kidney stones, and TIA that presents to the ED with a chief complaint of non- radiating and non-exertional chest pain, bilateral flank pain, diffuse body aches, and anxiety. Patient reports that both his chest pain and flank pain began this morning. He states that though his flank pain is bilateral it is more pronounced on the right side, and is associated with abdominal pain and burning dysuria. Patient additionally states that he had an anxiety attack this morning, which was followed by developing left hand numbness. He denies any headaches or fever. He reports that all of his symptoms began because his chronic back pain got worse. Patient states that he takes Percocet every morning for Lupus, and he took his dose as usual, but with no relief, prompting ED visit. Of Note: Patient states he was recently at [facility] and diagnosed with kidney stones. PMD: Dr. Arley Cano Past Medical History Reviewed: Historical Data, Nursing Documentation, Vital Signs Vital Signs: Last Vital Signs Temp 98.0 F 01/28/18 10:00 Pulse 85 01/28/18 10:00 Resp 16 01/28/18 10:00 BP 138/79 01/28/18 10:00 Pulse Ox 100 01/28/18 10:00 - Medical History PMH: Asthma, CAD, CHF, CVA, Fibromyalgia, HTN, Kidney Stones, Chronic Kidney Disease, TIA Other PMH: Lupus - Surgical History Surgical History: Hernia Repair (hiatal hernia) - Family History Family History: States: CAD, Hypertension - Home Medications Home Medications: Ambulatory Orders Medication Instructions Recorded Allopurinol [Zyloprim] 1 tab PO DAILY 02/12/17 Hydroxychloroquine Sulfate 200 mg PO BID 02/12/17 [Plaquenil] Oxycodone HCl [Roxicodone] 20 mg PO TID PRN 02/12/17 amLODIPine [Norvasc] 2 mg PO DAILY 02/12/17 HYDROmorphone [Dilaudid 2 mg Tab] 2 mg PO DAILY 10/30/17 - Allergies Allergies/Adverse Reactions: Allergies Allergy/AdvReac Type Severity Reaction Status Date / Time Penicillins Allergy RASH Verified 05/07/17 11:26 shellfish derived Allergy RASH Verified 05/07/17 11:26 Sulfa (Sulfonamide Allergy RASH Verified 05/07/17 11:26 Antibiotics) azithromycin [From Zithromax] AdvReac NAUSEA Verified 05/07/17 11:26 Review of Systems ROS Statement: Except As Marked, All Systems Reviewed And Found Negative Constitutional: Positive for: Other (diffuse body aches). Negative for: Fever Cardiovascular: Positive for: Chest Pain (non-radiating and non-exertional) Gastrointestinal: Positive for: Abdominal Pain Genitourinary Male: Positive for: Dysuria (burning) Musculoskeletal: Positive for: Back Pain (b/l flank pain, worse on right side) Neurological: Positive for: Numbness (left hand numbness). Negative for: Headache Psych: Positive for: Anxiety Physical Exam - Reviewed Nursing Documentation Reviewed: Yes Vital Signs Reviewed: Yes - Physical Exam Appears: Positive for: Non-toxic, No Acute Distress (Patient appears slightly anxious, but is comfortable) Head Exam: Positive for: ATRAUMATIC Skin: Positive for: Normal Color, Warm Eye Exam: Positive for: Normal appearance, EOMI, PERRL Neck: Positive for: Normal, Supple Cardiovascular/Chest: Positive for: Regular Rate, Rhythm. Negative for: Murmur Respiratory: Positive for: Normal Breath Sounds. Negative for: Wheezing Gastrointestinal/Abdominal: Positive for: Tenderness (suprapubic tenderness to palpation). Negative for: Normal Exam Back: Positive for: Normal Inspection. Negative for: L CVA Tenderness, R CVA Tenderness Extremity: Positive for: Normal ROM. Negative for: Deformity, Swelling Neurologic/Psych: Positive for: Alert, Oriented. Negative for: Motor/Sensory Deficits - Laboratory Results Result Diagrams: 01/28/18 10:40 01/28/18 10:40 - Progress Re-evaluation Time: 14:07 Condition: Re-examined, Improved Medical Decision Making Medical Decision Making: Impression: Flank Pain and Dysuria, Chest Pain, Chronic Body Pain, ddx include but not limited to Renal Colic with or without UTI vs. ACS vs. Chronic Pain of Body due to Lupus or Fibromyalgia Plan: * CT Abdomen/Pelvis w/o PO or IV Contrast * EKG * BMP * CBC * Troponin I * Urine Dip * Toradol 30 mg IV * Reevaluation EKG shows NSR at a rate of 86 BPM, no ST changes, normal QRS. PROCEDURE: CT Abdomen and Pelvis without intravenous contrast HISTORY: right flank pain COMPARISON: CT 10/07/2017 TECHNIQUE: Without contrast.. Contrast Dose: 0 Radiation dose: Total exam DLP = 1154.27 mGy-cm. This CT exam was performed using one or more of the following dose reduction techniques: Automated exposure control, adjustment of the mA and/or kV according to patient size, and/or use of iterative reconstruction technique. FINDINGS: LOWER THORAX: Unremarkable. LIVER: Mild hepatomegaly. The liver measures approximately 21 cm craniocaudal. Diffusely diminished attenuation of the liver consistent with fatty infiltration. Smooth contour. No mass. No biliary ductal dilatation. Focal fatty sparing adjacent to the gallbladder fossa, in the medial segment left hepatic lobe. GALLBLADDER AND BILE DUCTS: Unremarkable. PANCREAS: Unremarkable. No gross lesion or ductal dilatation. SPLEEN: Mild splenomegaly. The spleen measures approximately 14.3 cm in greatest dimension. No mass. ADRENALS: Unremarkable. No mass. KIDNEYS AND URETERS: 3 mm nonobstructing right upper pole renal calculus. Right lower pole cortical cyst, 5.5 cm, unchanged from prior examination. This measures -1.6 Hounsfield units. No other mass. No left renal calculus. No hydronephrosis. No hydroureter or ureteral calculus. VASCULATURE: Unremarkable. No aortic aneurysm. BOWEL: Sigmoid diverticulosis. No diverticulitis. No bowel obstruction. No other abnormal bowel loops. APPENDIX: Unremarkable. Normal appendix. PERITONEUM: Unremarkable. No free fluid. No free air. LYMPH NODES: Unremarkable. No enlarged lymph nodes. BLADDER: Nondistended REPRODUCTIVE: Normal prostate BONES: No acute fracture. OTHER FINDINGS: None. IMPRESSION: 3 mm nonobstructing right upper pole renal calculus. Right lower pole renal cortical cyst. Mild hepatic splenomegaly. Extensive fatty infiltration of the liver. Sigmoid diverticulosis without evidence of diverticulitis. No additional abnormality. 13:46 Upon reevaluation, patient is comfortable, and is sleeping after being given Toradol. Scribe Attestation: Documented by Franchesca Regalado, acting as a scribe for Alvaro Sanchez MD. Provider Scribe Attestation: All medical record entries made by the Scribe were at my direction and personally dictated by me. I have reviewed the chart and agree that the record accurately reflects my personal performance of the history, physical exam, medical decision making, and the department course for this patient. I have also personally directed, reviewed, and agree with the discharge instructions and disposition. Disposition - Clinical Impression Clinical Impression: Chest pain, Flank pain, Renal calculus Doctor Will See Patient In The: Office Counseled Patient/Family Regarding: Studies Performed, Diagnosis, Need For Followup - Disposition Referrals: Arley Cano MD [Family Provider] - Disposition: Routine/Home Disposition Time: 14:08 Condition: GOOD Additional Instructions: Follow up with your PCP and urologist within 3-5 days. Return for worsening. Instructions: Chest Pain (DC), Kidney Stones (DC)
[2018-01-28 11:01] LABS: BLOOD UREA NITROGEN 17 mg/dl (9-20); CALCIUM 9.5 mg/dL (8.4-10.2); GFR AFRICAN-AMERICAN > 60; GFR NON-AFRICAN AMERICAN > 60
[2018-01-28 13:07] VITALS: TEMP 98; O2SAT 100
--- NOTE | 2018-01-28 13:14 | CT ---
PROCEDURE: CT Abdomen and Pelvis without intravenous contrast HISTORY: right flank pain COMPARISON: CT 10/07/2017 TECHNIQUE: Without contrast.. Contrast Dose: 0 Radiation dose: Total exam DLP = 1154.27 mGy-cm. This CT exam was performed using one or more of the following dose reduction techniques: Automated exposure control, adjustment of the mA and/or kV according to patient size, and/or use of iterative reconstruction technique. FINDINGS: LOWER THORAX: Unremarkable. LIVER: Mild hepatomegaly. The liver measures approximately 21 cm craniocaudal. Diffusely diminished attenuation of the liver consistent with fatty infiltration. Smooth contour. No mass. No biliary ductal dilatation. Focal fatty sparing adjacent to the gallbladder fossa, in the medial segment left hepatic lobe. GALLBLADDER AND BILE DUCTS: Unremarkable. PANCREAS: Unremarkable. No gross lesion or ductal dilatation. SPLEEN: Mild splenomegaly. The spleen measures approximately 14.3 cm in greatest dimension. No mass. ADRENALS: Unremarkable. No mass. KIDNEYS AND URETERS: 3 mm nonobstructing right upper pole renal calculus. Right lower pole cortical cyst, 5.5 cm, unchanged from prior examination. This measures -1.6 Hounsfield units. No other mass. No left renal calculus. No hydronephrosis. No hydroureter or ureteral calculus. VASCULATURE: Unremarkable. No aortic aneurysm. BOWEL: Sigmoid diverticulosis. No diverticulitis. No bowel obstruction. No other abnormal bowel loops. APPENDIX: Unremarkable. Normal appendix. PERITONEUM: Unremarkable. No free fluid. No free air. LYMPH NODES: Unremarkable. No enlarged lymph nodes. BLADDER: Nondistended REPRODUCTIVE: Normal prostate BONES: No acute fracture. OTHER FINDINGS: None. IMPRESSION: 3 mm nonobstructing right upper pole renal calculus. Right lower pole renal cortical cyst. Mild hepatic splenomegaly. Extensive fatty infiltration of the liver. Sigmoid diverticulosis without evidence of diverticulitis. No additional abnormality.
[2018-01-28 14:18] VITALS: BP 125/79; PULSE 75; RESP 14
--- NOTE | 2018-01-30 18:23 | CARD ---
APPROVED REPORT EKG Measurement Heart [id number] <Conclusion> Normal sinus rhythm Normal ECG
== END 2018-01-28 14:15 | disposition home or self-care (01) ==
LOC: H.ER 09:34
DX: R07.89 Other chest pain (principal); R10.9 Unspecified abdominal pain; N20.0 Calculus of kidney; F41.9 Anxiety disorder, unspecified; I13.0 Hypertensive heart and chronic kidney disease with heart failure and stage 1 through stage 4 chronic kidney disease, or unspecified chronic kidney disease; M32.9 Systemic lupus erythematosus, unspecified; M79.7 Fibromyalgia; Z86.73 Personal history of transient ischemic attack (TIA), and cerebral infarction without residual deficits; Z88.0 Allergy status to penicillin
CPT/HCPCS: 74176; 80048; 84484; 85025; 93005; 96374; 99285; J1885

== ENCOUNTER 2018-04-06 10:19 | Emergency (ER) | payer MEDICARE ==
[2018-04-06 10:19] VITALS: BMI 40.6
[2018-04-06 10:34] VITALS: TEMP 98.2
[2018-04-06] MEDS ORDERED: Sodium Chloride 0.9% 1,000 ML IV STA (11:22)
[2018-04-06] MEDS ORDERED: Lidocaine 100 MG in Sodium Chloride 0.9% 100 ML IV ONE (11:30)
--- NOTE | 2018-04-06 11:42 | ED PDOC ---
HPI: General Adult Time Seen by Provider: 04/06/18 11:14 Chief Complaint (Nursing): Chest Pain Chief Complaint (Provider): Left flank pain History Per: Patient History/Exam Limitations: no limitations Onset/Duration Of Symptoms: Hrs (this morning) Current Symptoms Are (Timing): Still Present Additional Complaint(s): Carl Haynes is a 43 year old male, with a past medical history of kidney stones, who presents to the emergency department complaining of left flank pain associated with nausea onset since this morning. Patient states flank pain radiates to the front. He denies any fever, chills, vomiting, dysuria or hematuria. No further medical complaints. PMD: None provided. Past Medical History Reviewed: Historical Data, Nursing Documentation, Vital Signs Vital Signs: Last Vital Signs Temp 98.2 F 04/06/18 10:32 Pulse 81 04/06/18 10:32 Resp 20 04/06/18 10:32 BP 145/94 H 04/06/18 10:32 Pulse Ox 98 04/06/18 11:45 - Medical History PMH: Asthma, CAD, CHF, CVA, Fibromyalgia, HTN, Kidney Stones, Chronic Kidney Disease, TIA - Surgical History Surgical History: Hernia Repair (hiatal hernia) - Family History Family History: States: CAD, Hypertension - Social History Current smoker - smoking cessation education provided: No Alcohol: None Drugs: Denies - Home Medications Home Medications: Ambulatory Orders Medication Instructions Recorded Allopurinol [Zyloprim] 1 tab PO DAILY 02/12/17 Hydroxychloroquine Sulfate 200 mg PO BID 02/12/17 [Plaquenil] Oxycodone HCl [Roxicodone] 20 mg PO TID PRN 02/12/17 amLODIPine [Norvasc] 2 mg PO DAILY 02/12/17 HYDROmorphone [Dilaudid 2 mg Tab] 2 mg PO DAILY 10/30/17 Ciprofloxacin HCl [Cipro] 500 mg PO BID #20 tab 04/06/18 traMADol [Ultram] 50 mg PO Q8 #10 tab 04/06/18 - Allergies Allergies/Adverse Reactions: Allergies Allergy/AdvReac Type Severity Reaction Status Date / Time Penicillins Allergy RASH Verified 05/07/17 11:26 shellfish derived Allergy RASH Verified 05/07/17 11:26 Sulfa (Sulfonamide Allergy RASH Verified 05/07/17 11:26 Antibiotics) azithromycin [From Zithromax] AdvReac NAUSEA Verified 05/07/17 11:26 Review of Systems ROS Statement: Except As Marked, All Systems Reviewed And Found Negative Constitutional: Negative for: Fever, Chills Gastrointestinal: Positive for: Nausea. Negative for: Vomiting Genitourinary Male: Negative for: Dysuria, Hematuria Musculoskeletal: Positive for: Other (left flank pain) Physical Exam - Reviewed Nursing Documentation Reviewed: Yes Vital Signs Reviewed: Yes - Physical Exam Appears: Positive for: Non-toxic, No Acute Distress Head Exam: Positive for: ATRAUMATIC, NORMOCEPHALIC Skin: Positive for: Normal Color, Warm, Dry Eye Exam: Positive for: Normal appearance Neck: Positive for: Painless ROM Cardiovascular/Chest: Positive for: Regular Rate, Rhythm Respiratory: Positive for: Normal Breath Sounds. Negative for: Respiratory Distress Gastrointestinal/Abdominal: Positive for: Normal Exam, Soft. Negative for: Tenderness Back: Positive for: Normal Inspection. Negative for: L CVA Tenderness, R CVA Tenderness Extremity: Positive for: Normal ROM (upper and lower extremities). Negative for : Deformity, Swelling Neurologic/Psych: Positive for: Alert, Oriented. Negative for: Motor/Sensory Deficits - ECG O2 Sat by Pulse Oximetry: 98 (RA) Pulse Ox Interpretation: Normal Medical Decision Making Medical Decision Making: Initial Plan: --Abd & Pelvis w/o PO or IV contrast [CT] --Urine dipstick --Toradol 30 mg IVP --Lidocaine 100 mg Sodium Chloride 100 ml IV --Sodium Chloride 1,000 ml IV 100 mls/hr --Toradol 30 mg IVP --Urine culture --Reevaluation Scribe Attestation: Documented by Paul Raza, acting as a scribe for Carlos Browne MD Provider Scribe Attestation: All medical record entries made by the Scribe were at my direction and personally dictated by me. I have reviewed the chart and agree that the record accurately reflects my personal performance of the history, physical exam, medical decision making, and the department course for this patient. I have also personally directed, reviewed, and agree with the discharge instructions and disposition. Disposition - Clinical Impression Clinical Impression: Diverticular disease, Renal calculus - Patient ED Disposition Is Patient to be Admitted: No Counseled Patient/Family Regarding: Studies Performed, Diagnosis, Need For Followup, Rx Given - Disposition Referrals: Gabriel Bolden MD, PhD [Staff Provider] - Gabriel Bello Jr., MD [Staff Provider] - Disposition: Routine/Home Disposition Time: 14:20 Condition: FAIR Prescriptions: Ciprofloxacin HCl [Cipro] 500 mg PO BID #20 tab traMADol [Ultram] 50 mg PO Q8 #10 tab Instructions: Kidney Stones in Adults, Diverticulosis Forms: [facility] ([place]ian)
--- NOTE | 2018-04-06 13:52 | CT ---
PROCEDURE: CT Abdomen and Pelvis without intravenous contrast HISTORY: Chest pain. "Rely kidney stone." COMPARISON: 01/28/2018. CT abdomen and pelvis. Summary of findings on the comparison examination:3 mm nonobstructing right upper pole renal calculus. Right lower pole renal cortical cyst. Mild hepatic splenomegaly. Extensive fatty infiltration of the liver Sigmoid diverticulosis without evidence of diverticulitis. TECHNIQUE: Unenhanced study. Neither oral nor intravenous contrast administered. Total exam DLP = 1164.36 mGy-cm. This CT exam was performed using one or more of the following dose reduction techniques: Automated exposure control, adjustment of the mA and/or kV according to patient size, and/or use of iterative reconstruction technique. FINDINGS: LOWER THORAX: Unremarkable. LIVER: Hepatomegaly, hepatic steatosis. GALLBLADDER AND BILE DUCTS: Unremarkable. PANCREAS: Unremarkable. No gross lesion or ductal dilatation. SPLEEN: Unremarkable. ADRENALS: Unremarkable. No mass. KIDNEYS AND URETERS: Right kidney: Nonobstructing 2 mm calculus upper pole. Incidental finding(s): 6 cm lower pole cyst. Left kidney in ureter: Unremarkable. VASCULATURE: Unremarkable. No aortic aneurysm. BOWEL: Diverticulosis without an acute inflammatory component or other associated pathologic process. APPENDIX: Unremarkable. Normal appendix. PERITONEUM: Unremarkable. No free fluid. No free air. LYMPH NODES: Unremarkable. No enlarged lymph nodes. BLADDER: Unremarkable. REPRODUCTIVE: Unremarkable. BONES: No acute fracture. OTHER FINDINGS: None. IMPRESSION: 3 mm nonobstructing calculus upper pole right kidney. Additional benign and/or incidental findings described above. No significant interval change compared to the prior examination(s).
[2018-04-06 14:29] VITALS: BP 153/88; PULSE 73; RESP 18; O2SAT 99
== END 2018-04-06 14:32 | disposition home or self-care (01) ==
LOC: H.ER 10:19
DX: N20.0 Calculus of kidney (principal); K57.90 Diverticulosis of intestine, part unspecified, without perforation or abscess without bleeding; I13.0 Hypertensive heart and chronic kidney disease with heart failure and stage 1 through stage 4 chronic kidney disease, or unspecified chronic kidney disease; M79.7 Fibromyalgia; Z86.73 Personal history of transient ischemic attack (TIA), and cerebral infarction without residual deficits; Z88.0 Allergy status to penicillin; I25.10 Atherosclerotic heart disease of native coronary artery without angina pectoris
CPT/HCPCS: 74176; 87086; 96374; 99282; J1885; J2001; J7040